=== PATIENT | female | born 1985 | race Caucasian/White ===

== ENCOUNTER 2016-07-29 07:23 | Emergency (ER) | payer SELFPAY ==
[2016-07-29] MEDS ORDERED: Ketorolac Tromethamine 30 MG/ML VIAL ONE (07:53)
[2016-07-29 08:55] LABS: #Basophils 0.1 thou/uL (0.0-0.2); #Eosinphils 0.2 thou/uL (0.0-0.7); #Lymphocytes 1.7 thou/uL (1.20-3.40); #Monocytes 0.5 thou/uL (0.11-0.59); #Neutrophils 6.3 thou/uL (1.40-6.50); %Basophils 1.3 % (0.0-1.0); %Eosinophils 2.4 % (0.0-10.0); Hematocrit 44.3 % (36.0-47.0); Mean Platelet Volume 9.3 fL (7.4-10.4); Red Blood Cell (RBC) Count 4.54 mill/uL (4.20-5.40); White Blood Cell (WBC) Count 8.9 thou/uL (4.8-10.8)
[2016-07-29 09:04] LABS: ALT (SGPT) 14 U/L (0-55); AST (SGOT) 14 U/L (5-34); Alkaline Phosphatase 45 U/L (40-150); Anion Gap 15 mmol/L (10-20); BUN (Urea Nitrogen) 16 mg/dL (7.0-18.7); Bilirubin, Total 0.4 mg/dL (0.2-1.2); Calc. Creatinine Clearance 0 mL/min (70-130); Calcium 9.3 mg/dL (7.8-10.44); Carbon Dioxide 22 mmol/L (22-29); Chloride 107 mmol/L (98-107); Estimated GFR-MDRD 89; Globulin 2.7 g/dL (2.4-3.5); Protein, Total 7.2 g/dL (6.0-8.3)
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
== END 2016-07-29 09:12 | disposition home or self-care (01) ==
LOC: BURERS 07:23
DX: M54.2 Cervicalgia (principal); F41.9 Anxiety disorder, unspecified; F32.9 Major depressive disorder, single episode, unspecified; F17.210 Nicotine dependence, cigarettes, uncomplicated; V89.2XXA Person injured in unspecified motor-vehicle accident, traffic, initial encounter
CPT/HCPCS: 36415; 70450; 71260; 72125; 74177; 80053; 84703; 85025; 96374; J1885

== ENCOUNTER 2016-11-23 12:44 | Emergency (ER) | payer OTHER, SELFPAY ==
[2016-11-23] MEDS ORDERED: Ketorolac Tromethamine 60 MG/2 ML VIAL ONE (12:55)
[2016-11-23 14:01] LABS: Pregnancy Test - Urine (BHCG) NEGATIVE (NEGATIVE); Pregu Control Background? CLEAR/WHITE (CLR/WHITE); Pregu Control Bar Appear? YES (CONTROL BAR); Specific Gravity 1.005 (1.002-1.036)
--- NOTE | 2016-11-23 14:58 | CT ---
CT LUMBAR SPINE: Date: 11-23-[address] of the lumbar spine was performed for evaluation of radicular pain. Axial slices were acqu ired and then coronal and sagittal reconstructions were done. FINDINGS: No fracture or dislocation was seen. There is no area of bony destruction. There is a very slight cu rve to the spine convex left. No central canal or foraminal stenosis was seen. There is a mild concentric bulge of the L5-S1 disc, perhaps a little more towards the right than the left, though I understand the left to be symptomat ic side. I do not see any definite neural impingement here. The SI joints were unremarkable in [facility]. The remainder of the spine appears normal. An incidental findings was thickening of the left adrenal gland. There could be an adenoma forming here, but I cannot be certain. IMPRESSION: Mild bulging of the L5-S1 disc. No acute findings otherwise. No evidence of neural impingement. POS: HOME
== END 2016-11-23 15:07 | disposition home or self-care (01) ==
LOC: BURERS 12:44
DX: M54.5 Low back pain (principal); F41.9 Anxiety disorder, unspecified; F32.9 Major depressive disorder, single episode, unspecified; F17.210 Nicotine dependence, cigarettes, uncomplicated
CPT/HCPCS: 72131; 81025; J1885

== ENCOUNTER 2017-02-02 12:26 | Emergency (ER) | payer OTHER, SELFPAY ==
[2017-02-02] MEDS ORDERED: predniSONE 20 MG TAB ONE (12:44)
[2017-02-02] MEDS ORDERED: Ketorolac Tromethamine 60 MG/2 ML VIAL ONE (12:44)
== END 2017-02-02 13:17 | disposition home or self-care (01) ==
LOC: BURERS 12:26
DX: M54.5 Low back pain (principal); F41.9 Anxiety disorder, unspecified; F32.9 Major depressive disorder, single episode, unspecified; F17.210 Nicotine dependence, cigarettes, uncomplicated
CPT/HCPCS: 96372; J1885; J7506

== ENCOUNTER 2017-06-09 19:37 | Emergency (ER) | payer SELFPAY ==
[2017-06-09] MEDS ORDERED: Ketorolac Tromethamine 30 MG/ML VIAL ONE (20:22)
[2017-06-09 21:24] LABS: #Basophils 0.1 thou/uL (0.0-0.2); #Eosinphils 0.3 thou/uL (0.0-0.7); #Lymphocytes 3.3 thou/uL (1.20-3.40); #Monocytes 0.6 thou/uL (0.11-0.59); #Neutrophils 4.4 thou/uL (1.40-6.50); %Basophils 1.5 % (0.0-1.0); %Eosinophils 3.6 % (0.0-10.0); %Lymphocytes 37.8 % (21.0-51.0); %Monocytes 6.8 % (0.0-10.0); %Neutrophils 50.3 % (42.0-75.0); Hemoglobin 15.2 g/dL (12.0-16.0); Mean Corpuscular HGB CONC 34.9 g/dL (32.0-36.0); Mean Corpuscular Hemoglobin 33.3 pg (27.0-31.0); Mean Corpuscular Volume 95.5 fl (81.0-99.0); Mean Platelet Volume 9.8 fL (7.4-10.4); Platelet Count 191 thou/uL (130-400); Red Blood Cell (RBC) Count 4.57 mill/uL (4.20-5.40); White Blood Cell (WBC) Count 8.8 thou/uL (4.8-10.8)
[2017-06-09 21:36] LABS: ALT (SGPT) 10 U/L (8-55); AST (SGOT) 11 U/L (5-34); Albumin 4.4 g/dL (3.5-5.0); Alkaline Phosphatase 51 U/L (40-150); Anion Gap 14 mmol/L (10-20); BUN (Urea Nitrogen) 15 mg/dL (7.0-18.7); Bilirubin, Total Less than 0.2 mg/dL (0.2-1.2); Calc. Creatinine Clearance 0 mL/min (70-130); Carbon Dioxide 26 mmol/L (22-29); Chloride 106 mmol/L (98-107); Estimated GFR-MDRD 63; Globulin 3.8 g/dL (2.4-3.5); Glucose 97 mg/dL (70-105); Potassium 4.1 mmol/L (3.5-5.1); Protein, Total 8.2 g/dL (6.0-8.3); Sodium 142 mmol/L (136-145)
== END 2017-06-09 22:05 | disposition home or self-care (01) ==
LOC: BURERS 19:37
DX: L03.113 Cellulitis of right upper limb (principal); M12.9 Arthropathy, unspecified; M19.90 Unspecified osteoarthritis, unspecified site; I10 Essential (primary) hypertension; F41.9 Anxiety disorder, unspecified; F32.9 Major depressive disorder, single episode, unspecified; F17.210 Nicotine dependence, cigarettes, uncomplicated
CPT/HCPCS: 36415; 80053; 85025; 85652; 86140; 87070; 87205; 96374; J1885

== ENCOUNTER 2017-12-03 15:09 | Emergency (ER) | payer OTHER, SELFPAY ==
[2017-12-03] MEDS ORDERED: HYDROcodone/Acetaminophen 5/325 mg Tablet ONE (15:31)
[2017-12-03] MEDS ORDERED: Ibuprofen 800 MG TAB ONE (15:31)
== END 2017-12-03 15:37 | disposition home or self-care (01) ==
LOC: BURERS 15:09
DX: M54.5 Low back pain (principal); I10 Essential (primary) hypertension; F32.9 Major depressive disorder, single episode, unspecified; F41.9 Anxiety disorder, unspecified; F17.210 Nicotine dependence, cigarettes, uncomplicated; M19.90 Unspecified osteoarthritis, unspecified site; Z79.899 Other long term (current) drug therapy
CPT/HCPCS: 99283

== ENCOUNTER 2018-02-11 05:28 | Emergency (ER) | payer OTHER, SELFPAY ==
[2018-02-11 06:25] LABS: ALT (SGPT) 14 U/L (8-55); AST (SGOT) 10 U/L (5-34); Albumin 4.1 g/dL (3.5-5.0); Alkaline Phosphatase 70 U/L (40-150); Anion Gap 15 mmol/L (10-20); BUN (Urea Nitrogen) 9 mg/dL (7.0-18.7); Bilirubin, Total 0.3 mg/dL (0.2-1.2); Calc. Creatinine Clearance 0 mL/min (70-130); Calcium 9.4 mg/dL (7.8-10.44); Carbon Dioxide 24 mmol/L (22-29); Chloride 103 mmol/L (98-107); Estimated GFR-MDRD Greater than 90; Globulin 3.4 g/dL (2.4-3.5); Glucose 125 mg/dL (70-105); Protein, Total 7.5 g/dL (6.0-8.3); Sodium 138 mmol/L (136-145)
--- NOTE | 2018-02-11 06:31 | RAD ---
AP PORTABLE CHEST: 02/11/2018 0521 HOURS COMPARISON: 05/23/2016 FINDINGS: The heart is normal in size. There is no vascular congestion, edema, or pleural effusion. No lobar infiltrate is seen. The haziness over the lung bases is felt to be due to the overlying soft tissues . The trachea is midline. IMPRESSION: No acute thoracic findings. POS: HOME
[2018-02-11] MEDS ORDERED: Albuterol Sulfate 1.25 MG/3 ML NEB ONE (06:37)
[2018-02-11] MEDS ORDERED: methylPREDNISolone Sod Succ/PF 125 MG/2 ML VIAL ONE (06:38)
[2018-02-11 06:40] LABS: #Basophils 0.1 thou/uL (0.0-0.2); #Eosinphils 0.2 thou/uL (0.0-0.7); #Lymphocytes 1.6 thou/uL (1.20-3.40); #Monocytes 0.8 thou/uL (0.11-0.59); #Neutrophils 12.5 thou/uL (1.40-6.50); %Basophils 0.8 % (0.0-1.0); %Lymphocytes 10.8 % (21.0-51.0); %Monocytes 5.2 % (0.0-10.0); %Neutrophils 82.2 % (42.0-75.0); Hemoglobin 13.6 g/dL (12.0-16.0); Mean Corpuscular HGB CONC 37.8 g/dL (32.0-36.0); Mean Corpuscular Hemoglobin 32.2 pg (27.0-31.0); Mean Corpuscular Volume 85.2 fL (78.0-98.0); Mean Platelet Volume 7.9 fL (7.4-10.4); Platelet Count 202 thou/uL (130-400); RBC Distribution Width 11.4 % (11.5-14.5); Red Blood Cell (RBC) Count 4.23 mill/uL (4.20-5.40); White Blood Cell (WBC) Count 15.3 thou/uL (4.8-10.8)
[2018-02-11] MEDS ORDERED: Enoxaparin Sodium 100 MG/ML SYRINGE ONE (06:45)
--- NOTE | 2018-02-11 16:45 | CT ---
PRELIMINARY REPORT/[facility]/EMERGENTY AFTER-HOURS PROCEDURE CT Angiography Chest With Intravenous Contrast CLINICAL HISTORY: 32 years old, female; Pain; Chest pain; Patient HX: Shortness of breath, HX cervical ca TECHNIQUE: Axial computed tomographic angiography images of the chest with intravenous contrast using pulmonary embolism protocol. MIP reconstructed images were created and reviewed. Oblique reformatted images were created and reviewed. COMPARISON: No relevant prior studies available. FINDINGS: Pulmonary arteries: Filling defects to the right lower lobe segmental and subsegmental pulmonary bert yasmin. Filling defects to the left lower lobe subsegmental pulmonary arteries. Aorta: Unremarkable. Lungs: Right greater than left bibasilar groundglass opacities. Pleural space: No significant effusion. No pneumothorax. Heart: Mild flattening of the interventricular septum. Bones/joints: No acute fracture. No dislocation. Soft tissues: Unremarkable. Lymph nodes: No adenopathy. IMPRESSION: 1. Bilateral pulmonary thromboembolism as described above. 2. Mild flattening of the interventricular septum suggests right heart strain. 3. Right greater than left bibasilar groundglass opacities which are nonspecific with multiple etiolo gies but probably related to underlying pulmonary embolism. THIS REPORT CONTAINS FINDINGS THAT MAY BE CRITICAL TO PATIENT CARE. The findings were verbally commun icated via telephone conference with YULIANA Valencia at 7:29 AM CDT on 02/11/2018. The findings were acknowledged and understood. Thank you for allowing us to participate in the care of your patient. Dictated and Authenticated by: Jose D Davalos MD 02/11/2018 7:32 AM Central Time ([place] & [place]) FINAL REPORT CT ANGIO OF THE CHEST WITH CONTRAST: DATE: 02/11/18. FINDINGS: Spiral CT of the chest was done for evaluation of shortness of breath and an elevated D-dimer. Axial slices were acquired after a bolus of IV contrast, then oblique coronal reformations through the pul monary arteries were obtained, as well as a straight coronal reconstruction. Multiple filling defects are seen in pulmonary arterial branches. This is mostly seen in numerous br anches of the right lower lobe going out to the subsegmental level. There are also defects seen in t he left lower lobe peripherally, but the clot burden is not as high on this side as the right. I do not see a clot in the main pulmonary arteries but on the right side, the clot begins immediately upon the branching of the right pulmonary artery. There are a few clots going to the right upper lobe bu t not many. The aorta shows no aneurysm or dissection. No pericardial fluid was seen. The [facility] report mentione d some flattening of the intraventricular septum which can sometimes be associated with right heart s train. The lungs show numerous ground-glass opacities in the lung bases, right much more so than left. This is predominantly in the right lower lobe, but there are a few right middle lobe findings as well. T here are no effusions. The liver is seen incompletely but seems mildly generous in size. IMPRESSION: 1. Positive study for multiple pulmonary thromboemboli with the greatest burden of clot in the right lower lobe. Clot is also seen in the left lower lobe. 2. Other findings as noted above. Report in agreement with preliminary reading by [facility]. POS: HOME
== END 2018-02-11 08:03 | disposition short-term general hospital (02) ==
LOC: BURERS 05:28
DX: I26.99 Other pulmonary embolism without acute cor pulmonale (principal); M19.90 Unspecified osteoarthritis, unspecified site; G89.29 Other chronic pain; M54.9 Dorsalgia, unspecified; I10 Essential (primary) hypertension; F32.9 Major depressive disorder, single episode, unspecified; F17.210 Nicotine dependence, cigarettes, uncomplicated; Z79.899 Other long term (current) drug therapy
CPT/HCPCS: 36415; 71045; 71275; 80053; 83880; 85025; 85379; 87040; 94640; 94760; 96372; 96374; 96375; J1650; J2270; J2930; J7620

== ENCOUNTER 2018-02-20 11:18 | Outpatient (CLI) | payer SELFPAY ==
--- NOTE | 2018-02-20 21:50 | RAD ---
CHEST TWO VIEWS 02/20/18 Comparison is made with the 02/14 study. There is considerably less pleural fluid on the right than be fore. There is still plenty present, and underlying infiltrate is quite evident extending all the way to the costophrenic angle. The left lung is clear. The heart size is normal. IMPRESSION: Right pleural effusion and infiltrate in the base. Less fluid today than previously. POS: HOME
== END 2018-02-20 11:19 | disposition home or self-care (01) ==
LOC: BURRAD 11:18
PROVIDERS: ATTEND Physician Assistant
DX: J90 Pleural effusion, not elsewhere classified (principal); R91.8 Other nonspecific abnormal finding of lung field
CPT/HCPCS: 71046

== ENCOUNTER 2018-03-07 09:39 | Outpatient (CLI) | payer SELFPAY ==
--- NOTE | 2018-03-07 13:40 | RAD ---
CHEST TWO VIEWS: Date: 03-07-18 Comparison: 02-20-18 FINDINGS: There continues to be opacification in the right costophrenic angle along with evidence of some fluid and infiltrate here. The fluid seems slightly greater than before by a small amount. The opaque port ions have a slightly more fluffy appearance today than previously. If this patient is presentin g with fever, a superimposed infectious process here is certainly probable. The left lung remains gómez ar. The heart is normal in size. IMPRESSION: Slightly more infiltrate and fluid than on the 02-20-18 chest radiograph. Findings discussed with Michelle Bellamy at 1004 on 03-07-18. POS: [facility]
== END 2018-03-07 09:40 | disposition home or self-care (01) ==
LOC: BURRAD 09:39
PROVIDERS: ATTEND Physician Assistant
DX: I26.99 Other pulmonary embolism without acute cor pulmonale (principal); J18.1 Lobar pneumonia, unspecified organism; J90 Pleural effusion, not elsewhere classified
CPT/HCPCS: 71046

== ENCOUNTER 2018-10-28 17:01 | Emergency (ER) | payer OTHER ==
[2018-10-28] MEDS ORDERED: Ondansetron PF 4 MG/2 ML Vial ONE (17:27)
[2018-10-28 17:40] LABS: #Lymphocytes 0.9 thou/uL (1.20-3.40); #Monocytes 0.8 thou/uL (0.11-0.59); %Basophils 0.3 % (0.0-1.0); %Eosinophils 0.3 % (0.0-10.0); %Monocytes 5.6 % (0.0-10.0); %Neutrophils 87.8 % (42.0-75.0); Mean Corpuscular Hemoglobin 32.6 pg (27.0-31.0); Mean Platelet Volume 9.9 fL (7.4-10.4); Platelet Count 179 thou/uL (130-400); RBC Distribution Width 12.6 % (11.5-14.5); Red Blood Cell (RBC) Count 3.67 mill/uL (4.20-5.40); White Blood Cell (WBC) Count 14.9 thou/uL (4.8-10.8)
[2018-10-28 17:55] LABS: ALT (SGPT) 22 U/L (8-55); AST (SGOT) 37 U/L (5-34); Albumin 3.6 g/dL (3.5-5.0); Alkaline Phosphatase 76 U/L (40-150); Anion Gap 13 mmol/L (10-20); BUN (Urea Nitrogen) 4 mg/dL (7.0-18.7); Bilirubin, Total 0.3 mg/dL (0.2-1.2); Calc. Creatinine Clearance 0 mL/min (70-130); Calcium 9.1 mg/dL (7.8-10.44); Carbon Dioxide 20 mmol/L (22-29); Chloride 105 mmol/L (98-107); Estimated GFR-MDRD Greater than 90; Glucose 77 mg/dL (70-105); Potassium 3.2 mmol/L (3.5-5.1); Protein, Total 6.6 g/dL (6.0-8.3); Sodium 135 mmol/L (136-145)
[2018-10-28 18:09] LABS: Lipase Less than 4 U/L (8-78)
[2018-10-28 18:47] LABS: Clarity Clear (Clear)
[2018-10-28 18:48] LABS: Bilirubin Negative (Negative); Blood, Urine Moderate (Negative); Glucose, Urine (Dipstick) Negative (Negative); Leukocyte Trace (Negative); Nitrite Negative (Negative); Protein, Urine (Dipstick) Negative (Neg-Trace); Urobilinogen 0.2 mg/dL (0.2-1.0)
[2018-10-28 18:51] LABS: Bacteria/HPF 3+ HPF (None Seen); RBC/HPF 0-3 HPF (0-3); Squamous Epithelial 0-3 HPF (0-3); WBC/HPF 0-3 HPF (0-3)
[2018-10-28] MEDS ORDERED: Acetaminophen 325 MG TAB ONE (18:56)
== END 2018-10-28 19:47 | disposition home or self-care (01) ==
LOC: BURERS 17:01
DX: O99.89 Other specified diseases and conditions complicating pregnancy, childbirth and the puerperium (principal); R11.2 Nausea with vomiting, unspecified; R19.7 Diarrhea, unspecified; O23.42 Unspecified infection of urinary tract in pregnancy, second trimester; F17.210 Nicotine dependence, cigarettes, uncomplicated; O99.342 Other mental disorders complicating pregnancy, second trimester; F41.9 Anxiety disorder, unspecified; F32.9 Major depressive disorder, single episode, unspecified; O16.2 Unspecified maternal hypertension, second trimester; M19.90 Unspecified osteoarthritis, unspecified site; Z3A.22 22 weeks gestation of pregnancy
CPT/HCPCS: 80053; 81003; 81015; 83690; 85025; 87077; 87086; 87186; 96361; 96374; J2405

== ENCOUNTER 2018-11-09 20:22 | Emergency (ER) | payer OTHER ==
[2018-11-09 21:13] LABS: #Basophils 0.2 thou/uL (0.0-0.2); #Eosinphils 0.2 thou/uL (0.0-0.7); #Lymphocytes 3.1 thou/uL (1.20-3.40); #Neutrophils 10.6 thou/uL (1.40-6.50); %Basophils 1.2 % (0.0-1.0); %Eosinophils 1.1 % (0.0-10.0); %Lymphocytes 20.4 % (21.0-51.0); %Monocytes 6.4 % (0.0-10.0); Hemoglobin 12.9 g/dL (12.0-16.0); Mean Corpuscular HGB CONC 33.7 g/dL (32.0-36.0); Mean Corpuscular Hemoglobin 32.6 pg (27.0-31.0); Mean Corpuscular Volume 96.7 fL (78.0-98.0); Mean Platelet Volume 11.2 fL (7.4-10.4); Platelet Count 216 thou/uL (130-400); RBC Distribution Width 12.7 % (11.5-14.5); Red Blood Cell (RBC) Count 3.97 mill/uL (4.20-5.40)
[2018-11-09 21:13] LABS: Clarity Hazy (Clear)
[2018-11-09 21:14] LABS: Bilirubin Negative (Negative); Blood, Urine Moderate (Negative); Glucose, Urine (Dipstick) Negative (Negative); Leukocyte Small (Negative); Nitrite Negative (Negative); Protein, Urine (Dipstick) Negative (Neg-Trace); Urobilinogen 0.2 mg/dL (0.2-1.0)
[2018-11-09 21:21] LABS: Bacteria/HPF 2+ HPF (None Seen); RBC/HPF 0-3 HPF (0-3); Squamous Epithelial 0-3 HPF (0-3); Transitional Epithelial 0-3 HPF (0-3); WBC/HPF 0-3 HPF (0-3)
[2018-11-09 21:26] LABS: ALT (SGPT) 12 U/L (8-55); AST (SGOT) 13 U/L (5-34); Albumin 3.6 g/dL (3.5-5.0); Alkaline Phosphatase 90 U/L (40-150); Anion Gap 14 mmol/L (10-20); BUN (Urea Nitrogen) 7 mg/dL (7.0-18.7); Bilirubin, Total 0.2 mg/dL (0.2-1.2); Calc. Creatinine Clearance 0 mL/min (70-130); Calcium 9.7 mg/dL (7.8-10.44); Carbon Dioxide 24 mmol/L (22-29); Chloride 105 mmol/L (98-107); Estimated GFR-MDRD Greater than 90; Globulin 3.2 g/dL (2.4-3.5); Glucose 100 mg/dL (70-105); Potassium 3.5 mmol/L (3.5-5.1); Protein, Total 6.8 g/dL (6.0-8.3); Sodium 139 mmol/L (136-145)
== END 2018-11-09 22:20 | disposition critical access hospital (66) ==
LOC: BURERS 20:22
DX: O16.2 Unspecified maternal hypertension, second trimester (principal); F41.9 Anxiety disorder, unspecified; F32.9 Major depressive disorder, single episode, unspecified; F17.210 Nicotine dependence, cigarettes, uncomplicated
CPT/HCPCS: 36415; 80053; 81003; 81015; 85025; 99284

== ENCOUNTER → 2018-11-19 | Emergency (ER) | payer OTHER ==
[2018-11-19 14:06] LABS: Clarity Hazy (Clear); Leukocyte Moderate (Negative); Nitrite Negative (Negative); Protein, Urine (Dipstick) 100 mg/dL (Neg-Trace)
[2018-11-19 14:07] LABS: Bacteria/HPF Rare-Few HPF (None Seen); Bilirubin Negative (Negative); Blood, Urine Moderate (Negative); Glucose, Urine (Dipstick) Negative (Negative); Squamous Epithelial 0-3 HPF (0-3); Urobilinogen 0.2 mg/dL (0.2-1.0)
[2018-11-19 15:33] LABS: Clarity Clear (Clear)
[2018-11-19 15:34] LABS: Bilirubin Negative (Negative); Blood, Urine Moderate (Negative); Glucose, Urine (Dipstick) Negative (Negative); Leukocyte Small (Negative); Nitrite Negative (Negative); Protein, Urine (Dipstick) 100 mg/dL (Neg-Trace); Specific Gravity, Urine 1.015 (1.005-1.030); Urobilinogen 0.2 mg/dL (0.2-1.0)
[2018-11-19 15:36] LABS: Squamous Epithelial 0-3 HPF (0-3)
[2018-11-19 15:37] LABS: Bacteria/HPF Rare-Few HPF (None Seen); Other Microscopic Description MATCH WITH U143
== END ==
LOC: BURERS 12:55
DX: O13.2 Gestational [pregnancy-induced] hypertension without significant proteinuria, second trimester (principal); O14.93 Unspecified pre-eclampsia, third trimester; O99.343 Other mental disorders complicating pregnancy, third trimester; F41.9 Anxiety disorder, unspecified; F31.9 Bipolar disorder, unspecified; O99.333 Smoking (tobacco) complicating pregnancy, third trimester; Z79.899 Other long term (current) drug therapy
CPT/HCPCS: 51701; 81003; 81015; A4353